=== PATIENT | female | born 1985 | race Caucasian/White ===

== ENCOUNTER 2022-01-03 09:58 | Emergency (ER) | payer OTHER, SELFPAY ==
--- NOTE | ~2022-01-03 | CT_ITS ---
EXAMINATION: CT abdomen pelvis w con DATE: 01/03/2022 14:49 INDICATION: Kidney stone. TECHNIQUE: Computed tomography (CT) of the abdomen and pelvis was performed with 130 mL Omnipaque 350 intravenous contrast. Automated exposure control and iterative reconstruction technique were employe d. The dose-length product was 258.53 mGy-cm. COMPARISON: CT abdomen and pelvis 01/03/2022 FINDINGS: The visualized portions of the lung bases are clear without pneumonia or pleural effusion. The heart size is normal. No pericardial effusion. The liver, gallbladder, spleen, pancreas, adrenal glands, and kidneys are normal. The ureters are well opacified and are normal. There is a phlebolith posterior to the bladder on the right. There are no pathologically enlarged lymph nodes. There is no free intraperitoneal fluid. There are no dilated loops of bowel. The appendix is normal. There is mil d lumbar spondylosis. IMPRESSION: 1. No ureteral stone. Reviewed, dictated and finalized at location A. IMPRESSION: 1. No ureteral stone.
--- NOTE | ~2022-01-03 | CT_ITS ---
EXAMINATION: CT abdomen pelvis wo con DATE: 01/03/2022 13:02 INDICATION: Lower abdominal and flank pain. Dysuria for 2 weeks. TECHNIQUE: Computed tomography (CT) of the abdomen and pelvis was performed without intravenous contr ast. Automated exposure control and iterative reconstruction technique were employed. Exam dose: 167 .85 mGy-cm total exam DLP. COMPARISON: None. FINDINGS: The lung bases are clear. Normal heart size. No pericardial or pleural effusion. Cannot exclude small stones in the dependent aspect of the gallbladder; consider gallbladder ultrasou nd correlation. No gallbladder wall thickening or pericholecystic fluid or fat stranding is noted. No bile duct dilatation. No hepatic space-occupying mass lesion is evident. Normal splenic size. No pancreatic mass lesion, calcification or ductal dilatation. 3 mm nonobstructing upper pole right renal calculus. There are approximately 4 mm upper left renal nonobstructing calculi, the largest approximately 2.8 m m. Approximately 3.5 x 4.8 mm calcification is noted at the lower right posterior aspect of the urinary bladder, likely a calcified phlebolith. No right or left hydroureteronephrosis. If there is concern for possible distal right ureteral calcif ied calculus, consider repeat examination with IV contrast material. The urinary bladder, uterus, adnexal areas are unremarkable. No bowel obstruction or intraperitoneal free air. Normal appendix. Very small fat-containing umbilical hernia. Included skeletal structures are unremarkable IMPRESSION: Bilateral nonobstructive nephrolithiasis Probable prominent calcified phlebolith posterior right aspect of the urinary bladder, there is ruth rn for obstructing ureteral calculus, consider repeat CT examination with IV contrast material Normal appendix Reviewed, dictated and finalized at [facility]. Reviewed, dictated and finalized at location B. IMPRESSION: Bilateral nonobstructive nephrolithiasis Probable prominent calcified phlebolith posterior right aspect of the urinary b ladder, there is concern for obstructing ureteral calculus, consider repeat CT examination with IV contrast material Normal appendix
[2022-01-03 10:02] VITALS: BP 149/91; PULSE 73; RESP 16; TEMP 36.4; O2SAT 100
[2022-01-03 10:19] LABS: Appearance Urine Clear (Clear); Bilirubin Urine Negative (Negative); Color Urine Yellow (Yellow); Glucose Urine UA Negative (Negative); Ketones Urine Negative (Negative); Leukocyte Esterase Ur Negative LEU/UL (Negative); Nitrate Urine Negative (Negative); Protein Urine Negative (Negative); Urobilinogen Urine 0.2 mg/dL (<2.0)
[2022-01-03 10:34] LABS: Add Urine Microscopic? YES; Blood Urine Trace-Intact (Negative)
[2022-01-03 10:35] LABS: Mucus Urine Rare /lpf; Squamous Epithelial Cell Urine Rare /hpf (Few); WBC Urine 0-3 /hpf
--- NOTE | 2022-01-03 12:28 | ED.GENADULT ---
HPI - General Adult General Chief complaint: Urogenital-Female Stated complaint: UTI Time Seen by Provider: 01/03/22 12:01 Source: RN notes reviewed History of Present Illness HPI narrative: Patient presents emergency department from home for dysuria. Patient states for the past 2 weeks she has been having painful and frequent urination states has been associated with intermittent lower abdominal pain described as cramping and some lower back pain. She denies any fevers or chills chest pain shortness of breath nausea vomiting diarrhea or any other symptoms. States that she has noted small amount of blood in her urine Related Data Allergies Allergy/AdvReac Type Severity Reaction Status Date / Time No Known Allergies Allergy Verified 01/03/22 11:07 Review of Systems Review of Systems: Gen.: Denies fevers or chills ENT: Denies congestion Respiratory: Denies shortness of breath or cough CV: Denies chest pain or palpitations GI: Reports lower abdominal cramping, denies nausea, emesis or diarrhea d see HPI Musculoskeletal: Denies back pain or muscle pain Neuro: Denies numbness, tingling, weakness or focal weakness Skin: Denies rash Except as documented, all other systems reviewed and negative [facility] Past Medical History Medical History (Updated 01/03/22 @ 15:15 by Torsten William DO) Patient denies significant medical history Social History Social History (Updated 01/03/22 @ 12:29 by Torsten William DO) Smoking status: Never smoker Exam Narrative: APPEARANCE: No acute distress, nontoxic, resting in bed HEENT: Normocephalic, atraumatic, OMM RESPIRATORY: No respiratory distress, clear to auscultation bilaterally with no rhonchi wheezing or rales CARDIOVASCULAR: RRR s murmur ABDOMINAL: Soft nondistended mild tenderness palpation suprapubic region no tenderness right upper quadrant, left upper quadrant right lower quadrant left lower quadrant no rebound or guarding MUSCULOSKELETAl: Moves all extremities. No clubbing, cyanosis or edema. NEURO: Awake and alert. Following commands, speech normal, no focal deficits SKIN:: Warm, dry. Normal Color PSYCHIATRIC: Normal affect/mood Course Course Emergency Course: With patient having dysuria for 2 weeks as well as small amount of blood in her urine will obtain CT rule out kidney stone Discussed Dr. Silver for urology presentation and work-up he does recommend CT with contrast at this time Discussed with patient results of workup and diagnosis. Discussed need for follow-up with primary care, proper use of medication, and reasons to return to the emergency department. Patient understands and agrees to current treatment plan Vital Signs Vital signs: Vital Signs Temperature 97.6 F 01/03/22 10:02 Pulse Rate 73 01/03/22 10:02 Respiratory Rate 16 01/03/22 10:02 Blood Pressure 149/91 H 01/03/22 10:02 Pulse Oximetry 100 01/03/22 10:02 Oxygen Delivery Room Air 01/03/22 10:02 Temperature 97.6 F 01/03/22 10:02 Pulse Rate 73 01/03/22 10:02 Respiratory Rate 16 01/03/22 10:02 Blood Pressure 149/91 H 01/03/22 10:02 Pulse Oximetry 100 01/03/22 10:02 Oxygen Delivery Room Air 01/03/22 10:02 Medical Decision Making Vital Signs Vital Signs: Vital Signs Temperature 97.6 F 01/03/22 10:02 Pulse Rate 73 01/03/22 10:02 Respiratory Rate 16 01/03/22 10:02 Blood Pressure 149/91 H 01/03/22 10:02 Pulse Oximetry 100 01/03/22 10:02 Oxygen Delivery Room Air 01/03/22 10:02 Temperature 97.6 F 01/03/22 10:02 Pulse Rate 73 01/03/22 10:02 Respiratory Rate 16 01/03/22 10:02 Blood Pressure 149/91 H 01/03/22 10:02 Pulse Oximetry 100 01/03/22 10:02 Oxygen Delivery Room Air 01/03/22 10:02 Lab Data Result diagrams: 01/03/22 12:43 01/03/22 12:43 Labs: Lab Results 01/03/22 01/03/22 01/03/22 Range/Units 10:07 12:43 12:43 WBC 7.7 (4.5-10.0) K/mm3 RBC 4.40 (4.2-5
[2022-01-03 12:48] LABS: Basophils Absolute Auto 0.1 K/mm3 (0.0-0.1); Basophils Percent Auto 0.7 % (0.2-1.2); Eosinophils Absolute Auto 0.1 K/mm3 (0-0.3); Eosinophils Percent Auto 0.8 % (0-4.4); Hematocrit 41.2 % (37.0-47.0); Hemoglobin 13.6 g/dL (12.0-15.0); Immature Granulocyte Absolute 0.02 K/mm3 (0.00-0.031); Immature Granulocyte Percent A 0.3 % (0-0.5); Lymphocytes Absolute Auto 2.32 K/mm3 (0.9-3.2); Lymphocytes Percent Auto 30.2 % (18.3-44.2); Mean Corpuscular Hemoglobin 30.9 pg (26-34); Mean Corpuscular Volume 93.6 fl (80-100); Mean Platelet Volume 10.3 fl (7.4-10.4); Monocytes Absolute Auto 0.3 K/mm3 (0.1-0.6); Monocytes Percent Auto 4.3 % (2.6-8.5); Neutrophils Absolute Auto 4.9 K/mm3 (1.3-6.7); Neutrophils Percent Auto 63.7 % (45.5-73.1); Platelet Count Result 266 k/mm3 (150-375); Red Cell Distribution Width 12.7 % (11.5-14.5); White Blood Count 7.7 K/mm3 (4.5-10.0)
[2022-01-03 13:00] LABS: Alanine Aminotransferase 13 U/L (6-35); Albumin Level 4.5 g/dL (3.5-5.1); Alkaline Phosphatase 57 U/L (38-126); Anion Gap 11 mmol/L (8-16); Aspartate Amino Transferase 14 U/L (14-36); Blood Urea Nitrogen 8 mg/dL (7-17); Carbon Dioxide 21 mmol/L (22-30); Chloride 107 mmol/L (98-107); Estimated CRCL calculation 93 ml/min; Estimated Glomerular Filt Rate > 60; Glucose 89 mg/dL (65-110); Potassium 3.7 mmol/L (3.4-5.0); Sodium 139 mmol/L (137-145)
[2022-01-03 15:27] VITALS: BP 126/87; PULSE 76; RESP 16; O2SAT 98
== END 2022-01-03 15:28 | disposition home or self-care (01) ==
PROVIDERS: Emergency Medicine; Emergency Provider Emergency Medicine
DX: R30.0 Dysuria (principal); N20.0 Calculus of kidney
CPT/HCPCS: 36415; 74176; 74177; 74178; 80053; 81001; 81025; 85025; 99284; Q9967

== ENCOUNTER 2023-12-17 11:18 | Emergency (ER) | payer OTHER, SELFPAY ==
--- NOTE | ~2023-12-17 | XR_ITS ---
Clinical Indication: Chest pain PA and lateral views of the chest: Comparison: None Findings: The lungs are clear, without evidence of focal consolidation or pleural effusion. Cardiome diastinal silhouette is within normal limits. Bones and soft tissues are unremarkable. Impression: Normal chest. Reviewed, dictated and finalized at location . Impression: Normal chest.
--- NOTE | 2023-12-17 11:20 | ECG_ITS ---
Test Date: 2023-12-17 11:31:15 Measurements Intervals [place] Rate: 79 P: 51 DC: 118 QRS: 78 QRSD: 102 T: 64 QT: 348 QTc: 400 Interpretive Statements SINUS RHYTHM WITH SHORT DC INTERVAL POSSIBLE RIGHT VENTRICULAR CONDUCTION DELAY [RSR (QR) IN V1/V2] No previous ECG available for comparison Electronically Signed On 12-17-2023 14:19:16 CDT by Mark Rosen M.D.
[2023-12-17 11:31] VITALS: BP 137/74; PULSE 79; RESP 19; TEMP 36.4; O2SAT 96
[2023-12-17 11:40] LABS: Basophils Absolute Auto 0.1 K/mm3 (0.0-0.1); Basophils Percent Auto 0.9 % (0.2-1.2); Eosinophils Absolute Auto 0.2 K/mm3 (0-0.3); Hemoglobin 12.6 g/dL (12.0-15.0); Immature Granulocyte Absolute 0.02 K/mm3 (0.00-0.031); Immature Granulocyte Percent A 0.3 % (0-0.5); Lymphocytes Absolute Auto 2.66 K/mm3 (0.9-3.2); Lymphocytes Percent Auto 34.7 % (18.3-44.2); Mean Corpuscular HGB Conc 33.2 g/dl (32-36); Mean Corpuscular Hemoglobin 31.2 pg (26-34); Mean Corpuscular Volume 94.1 fl (80-100); Mean Platelet Volume 10.1 fl (7.4-10.4); Monocytes Absolute Auto 0.4 K/mm3 (0.1-0.6); Monocytes Percent Auto 5.5 % (2.6-8.5); Neutrophils Absolute Auto 4.3 K/mm3 (1.3-6.7); Neutrophils Percent Auto 56.6 % (45.5-73.1); Platelet Count Result 256 k/mm3 (150-375); Red Blood Count 4.04 M/mm3 (4.2-5.4); Red Cell Distribution Width 13.2 % (11.5-14.5); White Blood Count 7.7 K/mm3 (4.5-10.0)
[2023-12-17 11:52] LABS: Alanine Aminotransferase 12 U/L (6-35); Alkaline Phosphatase 46 U/L (38-126); Anion Gap 8 mmol/L (4-12); Aspartate Amino Transferase 15 U/L (14-36); Blood Urea Nitrogen 12 mg/dL (7-17); Calcium 8.5 mg/dL (8.4-10.2); Carbon Dioxide 22 mmol/L (22-30); Chloride 109 mmol/L (98-107); Estimated CRCL calculation 114 ml/min; Estimated Glomerular Filt Rate > 60; Glucose 110 mg/dL (65-110); Lipase 61 U/L (23-300); Potassium 3.8 mmol/L (3.4-5.0); Sodium 139 mmol/L (137-145)
[2023-12-17 11:53] LABS: INR 0.9; Prothrombin Time 12.9 Seconds (11.1-14.7)
[2023-12-17 11:54] LABS: Partial Thromboplastin Time 28.1 Seconds (22.3-36.8)
[2023-12-17 11:58] VITALS: BP 144/84; PULSE 73; RESP 16; O2SAT 97
[2023-12-17 12:02] LABS: Troponin I < 0.012 ng/mL (0.000-0.034)
[2023-12-17] MEDS: ASPIRIN 81 MG CHEWABLE TABLET 324 MG PO (12:05)
[2023-12-17 13:20] VITALS: BP 116/63; PULSE 90; RESP 18; O2SAT 99
--- NOTE | 2023-12-17 14:09 | ED.CHESTPAIN ---
HPI - Chest Pain General Chief Complaint: Chest Pain Stated Complaint: chest pain, burning Time Seen by Provider: 12/17/23 13:53 History of Present Illness HPI narrative: Patient is a 38-year-old female who presents to the emergency department this afternoon complaining of chest pain for the past 2-3 days. Patient admits that the pain is on and off and describes it as a dull aching pain across her entire chest. Denies any nausea or vomiting, any shortness of breath, any abdominal pain. Patient also denies any similar symptoms in the past. Patient admits to history of acid reflux and states that the pain feels similar to that. Denies any fevers or chills at home. No additional symptoms or concerns at this time. Related Data Allergies Allergy/AdvReac Type Severity Reaction Status Date / Time No Known Allergies Allergy Verified 01/03/22 11:07 Review of Systems Review of Systems: All systems are reviewed and are negative unless stated otherwise in the HPI. [facility] Past Medical History Medical History Patient denies significant medical history Social History Social History Smoking status: Never smoker Exam Narrative: General: Alert, awake, afebrile, in no acute distress. HEENT: PERRL, no rhinorrhea, no post nasal drip, oropharynx clear. Cardiovascular: Regular rate and rhythm, no murmurs, rubs or gallops, no peripheral edema. Respiratory: Clear to auscultation bilaterally, no tachypnea, no wheezing, no rhonchi, no rubs, no respiratory distress. Abdomen: Soft, nontender, nondistended, no rebound, no guarding, no peritoneal signs. Musculoskeletal: No joint swelling or deformity, normal muscle tone. Skin: No rashes or petechia, no signs of infection. Neurological: Alert and oriented to person, place, and time. Follows all commands. No focal deficits, speech is clear and fluent. Course Vital Signs Vital signs: Vital Signs Temperature 97.6 F 12/17/23 11:31 Pulse Rate 79 12/17/23 11:31 Respiratory Rate 19 12/17/23 11:31 Blood Pressure 137/74 12/17/23 11:31 Pulse Oximetry 96 12/17/23 11:31 Oxygen Delivery Room Air 12/17/23 11:31 Temperature 97.6 F 12/17/23 11:31 Pulse Rate 90 12/17/23 13:20 Respiratory Rate 18 12/17/23 13:20 Blood Pressure 116/63 12/17/23 13:20 Pulse Oximetry 99 12/17/23 13:20 Oxygen Delivery Room Air 12/17/23 11:58 MDM - Chest Pain MDM Narrative Medical decision making narrative: The patient was evaluated by myself in the emergency department. History is obtained from patient who is an independent historian and physical exam was performed. External medical records were reviewed at this time. IV was established and pertinent tests were ordered. Patient was administered a full dose oral chewable aspirin and 40 mg of IV Protonix. EKG was obtained which revealed sinus rhythm at a rate of 79 beats per minute, no evidence of acute ischemia. EKG was independently interpreted by me and is currently pending official cardiology read. Laboratory results obtained revealing no acute process. Imaging studies obtained included CXR which was independently interpreted by me revealing no acute cardiopulmonary process, which is pending final radiology interpretation. Differential diagnosis considerations include anxiety, acute stress reaction, acute viral syndrome, infectious process such as pneumonia, and acute coronary syndrome although unlikely given patient's low heart score of 0. Patient is PERC negative. Comorbidities impacting this visit include history of acid reflux. I have evaluated and discussed social determinants of health with the patient that could potentially impact subsequent diagnosis and treatment plans. On repeat assessment of the patient, reevaluation revealed that the patient is doing well and is in no acute distress.
[2023-12-17] MEDS: PANTOPRAZOLE SODIUM IV 40 MG VIAL IV PUSH (14:16)
[2023-12-17 14:17] VITALS: BP 133/72; PULSE 64; RESP 15; TEMP 36.7; O2SAT 98
== END 2023-12-17 14:22 | disposition home or self-care (01) ==
PROVIDERS: Emergency Medicine; Emergency Provider Emergency Medicine; PCP Family Medicine
DX: R07.9 Chest pain, unspecified (principal); K21.9 Gastro-esophageal reflux disease without esophagitis
CPT/HCPCS: 36415; 71046; 80053; 83690; 84484; 85025; 85610; 85730; 93005; 96374; 99284; A9270; J2470

== ENCOUNTER 2024-03-18 11:20 | Outpatient (CLI) | payer OTHER, SELFPAY ==
[2024-03-18 12:19] LABS: Basophils Absolute Auto 0.1 K/mm3 (0.0-0.1); Basophils Percent Auto 0.7 % (0.2-1.2); Eosinophils Absolute Auto 0.1 K/mm3 (0-0.3); Eosinophils Percent Auto 0.9 % (0-4.4); Hematocrit 39.6 % (37.0-47.0); Hemoglobin 12.8 g/dL (12.0-15.0); Immature Granulocyte Absolute 0.03 K/mm3 (0.00-0.031); Immature Granulocyte Percent A 0.3 % (0-0.5); Lymphocytes Absolute Auto 2.18 K/mm3 (0.9-3.2); Lymphocytes Percent Auto 24.2 % (18.3-44.2); Mean Corpuscular HGB Conc 32.3 g/dl (32-36); Mean Corpuscular Hemoglobin 30.8 pg (26-34); Mean Corpuscular Volume 95.4 fl (80-100); Mean Platelet Volume 10.4 fl (7.4-10.4); Monocytes Absolute Auto 0.4 K/mm3 (0.1-0.6); Monocytes Percent Auto 4.9 % (2.6-8.5); Neutrophils Absolute Auto 6.2 K/mm3 (1.3-6.7); Platelet Count Result 291 k/mm3 (150-375); Red Blood Count 4.15 M/mm3 (4.2-5.4); Red Cell Distribution Width 12.9 % (11.5-14.5)
[2024-03-18 12:32] LABS: Alanine Aminotransferase 12 U/L (6-35); Albumin Level 4.4 g/dL (3.5-5.1); Alkaline Phosphatase 51 U/L (38-126); Anion Gap 5 mmol/L (4-12); Aspartate Amino Transferase 15 U/L (14-36); Bilirubin,Total 0.9 mg/dL (0.2-1.3); Blood Urea Nitrogen 14 mg/dL (7-17); Calcium 8.9 mg/dL (8.4-10.2); Carbon Dioxide 26 mmol/L (22-30); Chloride 107 mmol/L (98-107); Cholesterol 172 mg/dL (0-200); Estimated Glomerular Filt Rate > 60; Glucose 98 mg/dL (65-110); HDL Direct 85 mg/dL; Potassium 3.7 mmol/L (3.4-5.0); Sodium 138 mmol/L (137-145); Triglycerides 51 mg/dL (<150)
[2024-03-18 12:48] LABS: LDL Cholesterol Direct 62 mg/dL
[2024-03-18 13:07] LABS: Free T4 Free Thyroxine 1.07 ng/mL (0.78-2.19)
[2024-03-18 13:13] LABS: Thyroid Stimulating Hormone 0.501 uIU/mL (0.465-4.680)
[2024-03-18 13:15] LABS: Total Triiodothyronine (T3) 1.42 NG/ML (0.97-1.69)
== END 2024-03-18 11:21 | disposition home or self-care (01) ==
PROVIDERS: PCP Family Medicine; Visit Provider Registered Nurse
DX: E78.5 Hyperlipidemia, unspecified (principal); R53.83 Other fatigue
CPT/HCPCS: 36415; 80053; 80061; 84439; 84443; 84480; 85025